=== PATIENT | female | born 1990 | race Two or more races ===

== ENCOUNTER 2024-03-23 07:45 | Day surgery (SDC) | payer MEDICAID, SELFPAY ==
--- NOTE | 2024-03-21 11:01 | ESHP_ITS ---
RE: GARCIA PEREZ : 1990 DATE OF ADMISSION: 03/23/2024 HISTORY OF PRESENT ILLNESS: This is a 33-year-old 3 para 3. She is multiparous and desires voluntary sterilization. MEDICATIONS: None. PAST MEDICAL HISTORY: Denies. SOCIAL HISTORY: She denies any alcohol, drug use, or smoking. She is [place]- speaking. FAMILY HISTORY: Denies. OBSTETRIC HISTORY: In 2012, 35-week normal vaginal delivery, no complications. In 2018, 40-week normal vaginal delivery, no complications. In 01/2023, 37-week, normal vaginal delivery, no complications. PAST SURGICAL HISTORY: Denies. REVIEW OF SYSTEMS: She denies any chest pain, palpitations, cough, fever, shortness of breath, or lower extremity pain. PHYSICAL EXAMINATION: VITAL SIGNS: Blood pressure 106/53, heart rate 88, respirations 18, temperature 98.2, weight 145 pounds. HEENT: Oropharynx and sclerae are clear. LUNGS: Clear to auscultation bilaterally. HEART: Regular rate and rhythm. ABDOMEN: Nontender. No scars noted. EXTREMITIES: Nontender. SKIN: No gross rashes or lesion. NEUROLOGIC: No focal deficits. ASSESSMENT: Multiparous, voluntary sterilization. PLAN: Laparoscopic bilateral salpingectomy. Informed consent was obtained. The patient was made aware of the risks, complications, alternatives, and benefits of the proposed procedure and she agrees. She is aware the failure rate and increased risk of tubal ectopic gestation if occurs. She is aware of the reversal methods of control and she declines those methods. She is aware that vasectomy is simply and safer, less risky and has a lower failure rate. She is aware of the risk of injury to bowel or bladder, uterus, adjacent organs, pulmonary embolism, deep vein thrombosis, injury to the vessels of the abdominal wall, hematoma, abscess, wound infection, wound dehiscence, pelvic infection, reoperation to repair injury to internal organs, anesthesia complications, the possibility that laparotomy needs to be perform to complete the procedure or control bleeding and the possibility that the procedure is not able to be completed due to severe adhesions or technical difficulties. DT: 08:39:02 TT: 11:00:00 Ref: [id number] - TID: [id number] [facility]
[2024-03-22 07:10] VITALS: BMI 25.1
[2024-03-22 07:59] LABS: Basophils % (Auto) 0 % (0-2.5); Eosinophils # (Auto) 0.1 Thou/mm3 (0.0-0.5); Eosinophils % (Auto) 1 % (0-10); Hematocrit 40.2 % (36.0-46.0); Hemoglobin 13.7 g/dL (12.0-16.0); Immature Granulocytes % (Auto) 0 % (0-0); Immature Granulocytes Auto 0.01 Thou/mm3 (0.00-0.00); Lymphocytes # (Auto) 2.4 Thou/mm3 (1.0-4.8); Lymphocytes % (Auto) 48 % (10-50); Mean Corpuscular HGB Conc 34.1 g/dl (31.0-37.0); Mean Corpuscular Hemoglobin 30.2 pg (25.0-35.0); Mean Corpuscular Volume 89 fL (80-100); Monocytes # (Auto) 0.3 Thou/mm3 (0.0-0.8); Monocytes % (Auto) 5 % (0-12); Neutrophils # (Auto) 2.3 Thou/mm3 (1.8-7.7); Neutrophils % (Auto) 45 % (37-80); Nucleated Red Blood Cell % 0 /100 WBC (0); Platelet Count 191 Thou/mm3 (140-440); Red Blood Count 4.54 Miln/mm3 (4.00-5.20)
[2024-03-22 08:18] LABS: Alanine Aminotransferase 15 U/L (10-49); Albumin, Serum 4.6 gm/dL (3.5-5.0); Albumin/Globulin Ratio 1.8 (1.2-2.2); Alkaline Phosphatase 73 U/L (46-116); Anion Gap 6 (7-16); Aspartate Amino Transferase 25 U/L (0-34); BUN/Creatinine Ratio 14 Ratio (12-20); Beta HCG,Quantitative < 1 mIU/mL (<5.0); Bilirubin,Total 0.5 mg/dL (0.3-1.2); Blood Urea Nitrogen 13 mg/dL (9-23); Calcium 9.3 mg/dL (8.3-10.6); Calcium (Corrected) 9.3 mg/dL (8.5-10.1); Carbon Dioxide 27.7 mMol/L (20.0-31.0); Chloride 105 mMol/L (98-107); Creatinine (Component) 0.9 mg/dL (0.6-1.3); Estimated Creatinine Clearance 84.9 mL/min (>60); Globulin 2.5 gm/dL (2.3-3.5); Glucose 88 mg/dL (74-106); Osmolality,Calculated 276 (275-295); Sodium 139 mMol/L (136-145); Total Protein 7.1 gm/dL (5.7-8.2); eGFR > 60 See Note
[2024-03-22 08:33] LABS: INR 1.2 (0.9-1.3); Partial Thromboplastin Time 28.9 Seconds (22.0-36.0); Prothrombin Time 12.6 Seconds (9.0-12.2)
[2024-03-23] VITALS (8 sets, daily range): BP systolic 97–111; BP diastolic 53–75; PULSE 52–76; RESP 12–18; TEMP 36.4–36.7; O2SAT 97–100; BMI 24.8
--- NOTE | 2024-03-23 11:01 | SUR.PHASEI ---
pt received from OR in recovery bay 5. pt obtunded, breathing unlabored on 8l oxymask, oral airway in place. v/s stable. pt dressing to abd dermabond x3 cdi. report received from Elaine ROTHMAN and Мария CARD.
--- NOTE | 2024-03-23 11:19 | SUR.PHASEI ---
pt able to tolerate oral fluids without difficulty swallowing or nausea/vomiting.
--- NOTE | 2024-03-23 12:30 | SUR.PHASEII ---
pt awake and alert, breathing unlabored on room air. v/s stable. pt dressing to lower abd dermabond x3 cdi. pt able to ambulate to wheelchair with steady gait. d/c instructions given with s/o Peter in room, all questions answered. pt d/c via wheelchair with all belongings.
--- NOTE | 2024-03-24 07:45 | ESOP_ITS ---
RE: GARCIA PEREZ : 1990 DATE OF OPERATION: 03/23/2024 PREOPERATIVE DIAGNOSES: 1. Multiparity. 2. Desires voluntary sterilization. POSTOPERATIVE DIAGNOSES: 1. Multiparity. 2. Desires voluntary sterilization. PROCEDURE PERFORMED: Laparoscopic bilateral salpingectomy. SURGEON: Robson Mehta DO [employer] REPAIRER: SEBAS Box ANESTHESIA: General. ANESTHESIOLOGIST: Omar Davis MD ESTIMATED BLOOD LOSS: 10 mL. COMPLICATIONS: None. COUNTS: Correct. PATHOLOGY: Left and right fallopian tubes. FINDINGS: Normal-appearing uterus, fallopian tubes, and ovaries. No evidence of pelvic adhesions or endometriosis. DESCRIPTION OF PROCEDURE: After proper informed consent was obtained and patient made aware of the risks, complications, alternatives, and benefits of the proposed procedure, she was taken to the operating room where she underwent induction of general anesthesia. She was placed in dorsal lithotomy position. She was prepped and draped in usual sterile fashion. A timeout was performed and a uterine manipulator was placed in the vagina into the uterus. Attention was then turned to the abdomen where the physician regowned and gloved and a 5-mm incision was made in the umbilical fold with tenting up the abdomen. A Veress needle was inserted. Saline confirmed intra-abdominal placement and artificial pneumoperitoneum was created to 12 mmHg. The Veress needle was then removed. The 5-mm trocar was inserted with tenting up the abdomen. Laparoscope connected to the video camera was then utilized to visualize the pelvis. A second incision was made in the midline 2 cm above the symphysis pubis. Through this 5-mm incision, a 5-mm trocar was inserted under direct visualization of laparoscope. In the left lower quadrant, a 5-mm incision was made. Through this 5-mm incision, a 5-mm trocar was inserted under direct visualization of laparoscope. Using the Harmonic scalpel 1136 gretta, the right salpingectomy was performed. Hemostasis was achieved and specimen sent to Pathology. Then, the left salpingectomy was performed. Hemostasis was achieved and specimen sent to Pathology. There was no bleeding at the end of the procedure. All instruments were removed from the abdomen. The carbon dioxide was removed from the peritoneal cavity. The incisions were infiltrated with lidocaine and closed with 4-0 Monocryl and covered with Dermabond. Attention was then turned to the vagina where the uterine manipulator was then removed. There was no bleeding at the end of the procedure. She was reversed from general anesthesia in supine position and transferred to recovery room in stable condition. She tolerated the procedure well. All counts were correct. I discussed with the patient's family the nature of her condition, the intraoperative findings, and expectation for recovery. All questions answered. DT: 10:53:34 TT: 16:32:00 Ref: [id number] - TID: [id number]
== END 2024-03-23 12:30 | disposition home or self-care (01) ==
PROVIDERS: PCP Family Medicine; Referring Provider Specialist; Visit Provider Specialist
PROC: (CPT 58670; principal; 2024-03-23 10:30)
DX: Z30.2 Encounter for sterilization (principal); Z64.1 Problems related to multiparity
CPT/HCPCS: 58661; 36415; 80053; 84702; 85025; 85610; 85730; 86850; 86900; 86901; A4217; A4649; J0131; J0690; J1100; J1885; J2250; J2405; J2704; J3010; J3490; J0665

== ENCOUNTER 2024-08-23 10:07 | Emergency (ER) | payer MEDICAID, SELFPAY ==
[2024-08-23 10:15] VITALS: BP 102/69; PULSE 75; RESP 17; TEMP 37.1; O2SAT 99; BMI 26.6
--- NOTE | 2024-08-23 11:23 | PD.EDHA ---
ED Headache RME/HPI General Chief Complaint: Headache Stated Complaint: MCKENZIE X 5 days and vomiting Time Seen by Provider: 08/23/24 11:23 Source: patient Arrival date/time: 08/23/24 10:07 Mode of arrival: ambulatory Limitations: no limitations RME / HPI RME / HPI Narrative: 33-year-old female presents to the ED with a complaint of a migraine headache that started 5 days ago. Patient was at work and her migraine became worse. Complains of vomiting this morning. MD Complaint: migraine Onset (ago): day(s) (5 days) Onset description: sudden Location: other (Global) Severity: severe Severity scale (1-10): 6 Quality: aching Relieving factors: nothing Context: occurred at rest Related Data Home Medications ?Medication ?Instructions ?Recorded ?Confirmed No Known Home Medications 03/22/24 03/22/24 Allergies Allergy/AdvReac Type Severity Reaction Status Date / Time No Known Allergies Allergy Verified 08/23/24 10:11 Review of Systems Constitutional Constitutional: Reports system reviewed and no additional complaints, except as documented Eyes Eyes: Reports system reviewed and no additional complaints, except as documented, Denies dry eyes, Denies exophthalmos and Reports floaters Cardiovascular Cardiovascular: Denies chest pain with activity and Denies claudication ED Exam General Limitations: Present no limitations General appearance: Present alert and in no apparent distress Head Head exam: Present atraumatic Eye Eye exam: Present normal appearance, PERRL and EOMI ENT ENT exam: Present normal exam, normal oropharynx and mucous membranes moist Neck Neck exam: Present normal inspection, full ROM and trachea midline Respiratory Respiratory exam: Present normal lung sounds bilaterally Cardiovascular Cardiovascular exam: Present regular rate, normal rhythm and normal heart sounds Extremities Exam Extremities exam: Present normal inspection and full ROM Back Exam Back exam: Present normal inspection and full ROM Neurological Exam Neurological exam: Present alert and oriented X3 Psychiatric Psychiatric exam: Present normal affect and normal mood Skin Skin exam: Present warm, dry, intact and normal color Course Course Course Narrative: Patient will have Toradol 30 mg with Benadryl 50 mg IM. Quality Measures none (N/A) Orders Category Date Time Status DiphenhydrAMINE INJ [Benadryl Inj] Med 08/23/24 11:34 Discontinued 50 mg IM X1 ONE Ketorolac Inj [Toradol Inj] Med 08/23/24 11:34 Discontinued 30 mg IM X1 ONE Morphine Inj Med 08/23/24 12:51 Discontinued 5 mg IM X1 ONE Vital Signs Vital signs: Vital Signs Temperature 98.7 F 08/23/24 10:15 Pulse Rate 75 08/23/24 10:15 Respiratory Rate 17 08/23/24 10:15 Blood Pressure 102/69 08/23/24 10:15 Pulse Oximetry (%) 99 08/23/24 10:15 Oxygen Delivery Method Room Air 08/23/24 10:15 Pulse ox room air is 99% Headache MDM Narrative MDM Narrative:: Toradol 30 as well as Benadryl 50 mg did not help. Patient was given 5 mg of morphine IM. She is now resting comfortably and she will be discharged in no apparent distress. Patient data External records reviewed:: Other (specify) (NA) Clinical information provided by:: patient and family Social determinants that could affect healthcare access:: none (NA) Patient has the following chronic illnesses:: NA How is presenting disease/condition affected by chronic disease/condition?: no chronic disease Evaluation data The following diagnostics were reviewed and interpreted by me:: other (specify) Lab and/or radiology exams considered but not ordered:: NA Interpretation Summary: NA Medications / Prescriptions Medications or Prescriptions considered but not ordered:: NA Medication administrations:: Medication Administration History Discontinued Medications Diphenhydramine HCl (Diphenhydramine Inj 50 Mg/Ml Vial) 50 mg IM X1 ONE Stop: 08/23/24 11:35 Last Admin: 08/23/24 11:51 Dose: 50 mg Documented By: NIXON Ketorolac Tromethamine (Ketorolac Inj 60 Mg/2 Ml Vial) 30 mg IM X1 ONE Stop: 08/23/24 11:35 Last Admin: 08/23/24 11:52 Dose: 30 mg Documented By: NIXON Morphine Sulfate (Morphine Sulf Inj 10 Mg/Ml Vial) 5 mg IM X1 ONE Stop: 08/23/24 12:52 Last Admin: 08/23/24 13:01 Dose: 5 mg Documented By: NIXON MICHELLE Consultations Consultation(s) initiated? (list below): No Diagnosis Differential diagnosis headache: subarachnoid hemorrhage, headache, meningitis and postconcussion syndrome Most likely diagnosis given after review of the tests above:: NA Admission Indicated Admission indicated?: not indicated Explain why admission is indicated or not indicated:: NA Admission Request Was there a request for admission?: No Disposition Plan Disposition Plan: Discharge Discharge Attestation Discharge Attestation: The patient and all family members were given an opportunity to ask questions and understood the discharge instructions. Discharge instructions specifically effects, indications for sooner follow up or return to the emergency department, and the expected course of current diagnosis. Patient condition: Stable Discharge Plan Plan Patient Disposition: HOME (Self Care) Discharge Disposition comment: Discharge in no apparent distress Patient condition on transfer: Stable Prescriptions/Referrals Prescriptions/Med Rec: No Action No Known Home Medications Referrals: No Primary/Family,Physician [Primary Care Provider] - In 1 week Problem List Clinical Impression: Headache Patient/Caregiver Discharge Instructions Discharge Activity: activity as tolerated Print Language: Thai Stand Alone Forms: Alissa Award Info., Work/School Release, Patient Portal Info Letter PA/[employer] TECH[employer] OFFICER Supervising Physician SAMANHTA/[employer] TECH[employer]ICAL OFFICER Supervising Physician: SHA
[2024-08-23] MEDS: KETOROLAC INJ 60 MG/2 ML VIAL 30 MG IM (11:52)
[2024-08-23] MEDS: MORPHINE SULF INJ 10 MG/ML VIAL 5 MG IM (13:01)
== END 2024-08-23 13:52 | disposition home or self-care (01) ==
PROVIDERS: Emergency Provider Emergency Medicine
DX: R51.9 Headache, unspecified (principal)
CPT/HCPCS: 96372; 99283; J1200; J1885; J2270